=== PATIENT | male | born 1955 | race Caucasian/White ===

== ENCOUNTER 2022-07-20 09:19 | Outpatient (CLI) | payer MEDICARE, OTHER, SELFPAY ==
--- NOTE | 2022-07-20 11:00 | NEURO_ITS ---
Impression: # Complains of numbness of hands. History of underlying diabetes mellitus. # Severe left Carpal Tunnel Syndrome superimposed on Underlying neuropathy of axonal type. # No ulnar neuropathy. # Needle/EMG exam abnormal with neurogenic changes in left abductor pollicis brevis. Motor Nerve Conduction Upper Extremities Median Nerve Conduction Velocity (m/sec) Terminal Latency (msec) Response Voltage(mV) Elbow-Wrist Wrist Elbow Wrist Right 53 4.1 3 3 Left NR NR NR NR Ulnar Nerve Conduction Velocity (m/sec) Terminal Latency (msec) Response Voltage(mV) Above Elbow Below Elbow Wrist Above Elbow Below Elbow Wrist Right 55 2.6 4 5 Left 55 2.4 4 5 F-Wave Latency Median (ms) Ulnar (ms) Right 32.5 31.2 Left 33.3 32.9 Sensory Nerve Conduction Upper Extremities Median Nerve Stimulation Terminal Latency (msec) Wrist/Digit Response Voltage (uV) Wrist Right NR/NR NR/NR Left 7.9/8.0 12/13 Ulnar Nerve Stimulation Terminal Latency (msec) Wrist/Digit Response Voltage (uV) Wrist Right 2.9 44 Left 2.6 33 Radial Nerve Terminal Latency (msec) Response Voltage(mV) Right 2.1 15 Left 2.2 21 Left Right Muscles Examined Fibrillation Fasciculation Scarcity Voltage Duration Left Right Left Right Left Right Left Right Left Right Deltoid Biceps X X Brachioradialis Triceps X X Pronator Teres Reduced Decreased >12ms X X Ext Indicis X X Ext Digitorum X X Abd Poll Brev Reduced Decreased >12ms X X 1st Dorsal Interosseus Paraspinals MTDD
== END 2022-07-20 09:20 | disposition home or self-care (01) ==
LOC: ANHNEURO 09:23
PROVIDERS: PCP Internal Medicine; Visit Provider Internal Medicine
DX: G56.02 Carpal tunnel syndrome, left upper limb (principal)
CPT/HCPCS: 95886; 95911

== ENCOUNTER 2022-10-31 02:07 | Day surgery (SDC) | payer MEDICARE, OTHER, SELFPAY ==
[2022-10-30 08:35] VITALS: BMI 30.2
--- NOTE | 2022-10-30 09:00 | PC.NURSE ---
Report to the Outpatient Waiting Room, entrance under the green pavilion located off [facility], at time _10:00AM on date __10/31/22 . Planned Procedure Time: __11:00AM . LOCAL ANESTHESIA Time changes happen often and if your time is changed the preop area will call you the afternoon before. - You and your visitor will be asked to self-screen and do not enter if you have any COVID symptoms. - A mask is optional within the hospital at this time. Patients may have LIGHT BREAKFAST. Take the following medications with a SIP of water the morning of surgery: ___AM MEDS DO NOT STOP ANY OF YOUR OTHER PRESCRIPTION MEDICATIONS PRIOR TO SURGERY ?EXCEPT THE FOLLOWING Medications to discontinue per physician ___NONE Date to take last dose Please no make-up, nail burmese, hairspray, perfume, deodorant, or body powder the day of surgery. No jewelry (including any body piercings) or valuables the day of surgery, leave them at home. Please take a shower or bath the night before, or the morning of, surgery with an antibacterial soap. Wear comfortable, loose fitting clothing. Children are encouraged to wear pajamas. - Jewelry must be removed prior to entering the operating room. Rings and piercings that are not removed may be cut off. - The hospital will not accept responsibility for valuables. - Please leave all valuables, including medications, at home the day of surgery. MAY DRIVE HOME. Follow any additional instructions given to you from your surgeon. If you or anyone in your household have experienced Covid symptoms in the past week, please notify your surgeon or the nurse liaison at the phone number below for possible testing. Telephone instructions given to __PATIENT and asked if any additional questions and then verbalized understanding. Patient advised to call surgeon office or pre surgery nurse liaison [phone] if any additional questions.
[2022-10-31] VITALS (8 sets, daily range): BP systolic 125–163; BP diastolic 58–79; PULSE 63–88; RESP 15–16; TEMP 36.3; O2SAT 93–99
--- NOTE | 2022-10-31 07:16 | WPDHPUPDATE1 ---
History and Physical Update Update Date/Time: 10/31/22 07:16 History and Physical has been reviewed, including an updated exam of the patient. There are NO changes in the patient's condition. Risks, benefits, and alternatives have been discussed and questions answered. Patient agrees to proceed with procedure.
--- NOTE | 2022-10-31 11:54 | SUR.PREOP ---
1154- updated pt on delay in Dr. Bocanegra room. pt stated he would wait.
[2022-10-31] MEDS: LIDO 1%/EPINEPHRINE 1:100,000 50 ML VIAL 7 ML INFILTRATE (13:10)
[2022-10-31] MEDS: BACITRACIN OINTMENT 15 GM TUBE 1 APPLIC TOPICAL (13:38)
--- NOTE | 2022-10-31 13:48 | W.PM.PROC2 ---
Procedure Note - Detailed Date of Procedure 10/31/22 Pre-op Diagnosis Right Carpal Tunnel syndrome Post-op Diagnosis Same Procedure Performed Right open carpal tunnel release Surgeon Clayton Blank MD Anesthesia Local Description of Procedure The patient's right wrist marked holding area his consent. He was taken to the operating room placed supine on the operating table. Time-out was held confirmed. The right upper extremity was prepped and draped in usual fashion. The site was marked again for the surgical incision and the area locally infiltrated with 1% lidocaine with epinephrine the extremity was exsanguinated and the tourniquet inflated to 250 mmHg. The incision was made as marked and dissection was carried bluntly through the subcutaneous tissue to the palmar aponeurosis. This and the transverse retinaculum incised with a 15. Blade. The retinacular tissue seemed quite stiff. Under 3 point retraction the ligament was divided distally and then proximally to completely release it. The skin was closed with interrupted 4-0 nylon suture. The usual bandage was applied. The patient discharged home with a prescription for hydrocodone 5/325 6. Estimated Blood Loss 0 Tourniquet Time 5 Drains No Packing No Pathology None sent Complications No immediate complications Condition Stable Disposition Same day
== END 2022-10-31 14:20 | disposition home or self-care (01) ==
PROVIDERS: PCP Internal Medicine; Visit Provider Plastic Surgery
PROC: (CPT 64721; principal; 2022-10-31 11:00)
DX: G56.01 Carpal tunnel syndrome, right upper limb (principal)
CPT/HCPCS: 64721; A9270

== ENCOUNTER 2023-01-23 01:17 | Day surgery (SDC) | payer MEDICARE, OTHER, SELFPAY ==
[2023-01-10 16:10] VITALS: BMI 31.1
--- NOTE | 2023-01-10 16:25 | PC.NURSE ---
Report to the Outpatient Waiting Room, entrance under the green pavilion located off [facility], at time __9:45AM on date ___01/23/23____. Planned Procedure Time: _10:45AM . Time changes happen often and if your time is changed the preop area will call you the afternoon before. - You and your visitor will be asked to self-screen and do not enter if you have any COVID symptoms. - A mask is optional within the hospital at this time. Patients may have LIGHT BREAKFAST. Take the following medications with a SIP of water the morning of surgery: __AM MEDS DO NOT STOP ANY OF YOUR OTHER PRESCRIPTION MEDICATIONS PRIOR TO SURGERY ?EXCEPT THE FOLLOWING Medications to discontinue per physician __NONE Date to take last dose Please no make-up, nail malay, hairspray, perfume, deodorant, or body powder the day of surgery. No jewelry (including any body piercings) or valuables the day of surgery, leave them at home. Please take a shower or bath the night before, or the morning of, surgery with an antibacterial soap. Wear comfortable, loose fitting clothing. Children are encouraged to wear pajamas. - Jewelry must be removed prior to entering the operating room. Rings and piercings that are not removed may be cut off. - The hospital will not accept responsibility for valuables. - Please leave all valuables, including medications, at home the day of surgery. If you are going home after surgery, MAY drive home. - NO public transportation without another adult if you receive anesthesia. Follow any additional instructions given to you from your surgeon. If you or anyone in your household have experienced Covid symptoms in the past week, please notify your surgeon or the nurse liaison at the phone number below for possible testing. Telephone instructions given to __PATIENT and asked if any additional questions and then verbalized understanding. Patient advised to call surgeon office or pre surgery nurse liaison [phone] if any additional questions.
--- NOTE | 2023-01-23 07:14 | WPDHPUPDATE1 ---
History and Physical Update Update Date/Time: 01/23/23 07:14 History and Physical has been reviewed, including an updated exam of the patient. There are NO changes in the patient's condition. Risks, benefits, and alternatives have been discussed and questions answered. Patient agrees to proceed with procedure.
[2023-01-23 10:18] VITALS: BP 134/95; PULSE 86; RESP 16; TEMP 36.4; O2SAT 100
[2023-01-23 11:00] VITALS: BP 138/74; PULSE 76; RESP 20; O2SAT 97
[2023-01-23 11:10] VITALS: BP 158/79; PULSE 77; RESP 16; O2SAT 96
[2023-01-23] MEDS: LIDO 1%/EPINEPHRINE 1:100,000 20 ML VIAL 5 ML INFILTRATE (11:15)
[2023-01-23 11:20] VITALS: BP 148/73; PULSE 78; RESP 16; O2SAT 95
[2023-01-23 11:30] VITALS: BP 144/72; PULSE 79; RESP 16; O2SAT 97
[2023-01-23 11:40] VITALS: BP 150/74; PULSE 74; RESP 16; O2SAT 97
--- NOTE | 2023-01-23 11:42 | W.PM.PROC2 ---
Procedure Note - Detailed Date of Procedure 01/23/23 Pre-op Diagnosis left carpal tunnel syndrome Post-op Diagnosis Same Procedure Performed Left open carpal tunnel release Surgeon Clayton Blank MD Anesthesia Local Description of Procedure The left volar wrist was marked for carpal tunnel release in the holding area. He was then taken to the operating room where he was placed supine on the operating table. A time-out was held and confirmed. The extremity was prepped and draped in usual fashion. The site was infiltrated with 1% lidocaine with epinephrine. The tourniquet was not utilized. The incision was made as marked after allowing 3 minutes of drying time. Are little bleeding was encountered. The palmar aponeurosis and transverse retinaculum were incised with a 15. Blade opening the canal. Under 3 point retraction the ligament was divided distally and proximally to completely release it. There was no unusual anatomy noted. The skin wound was closed with interrupted 4-0 nylon suture. Small bandage applied as usual and he is discharged from the operating room stable condition. Has a prescription for hydrocodone 5/325 6. Estimated Blood Loss 1 Tourniquet Time 0 Drains No Packing No Pathology None sent Complications No immediate complications Condition Stable Disposition Same day
== END 2023-01-23 12:02 | disposition home or self-care (01) ==
PROVIDERS: PCP Internal Medicine; Visit Provider Plastic Surgery
PROC: (CPT 64721; principal; 2023-01-23 10:45)
DX: G56.02 Carpal tunnel syndrome, left upper limb (principal); I10 Essential (primary) hypertension; E11.9 Type 2 diabetes mellitus without complications; C43.59 Malignant melanoma of other part of trunk; C78.00 Secondary malignant neoplasm of unspecified lung; C79.02 Secondary malignant neoplasm of left kidney and renal pelvis; Z79.84 Long term (current) use of oral hypoglycemic drugs; Z79.82 Long term (current) use of aspirin
CPT/HCPCS: 64721; A9270